=== PATIENT | female | born 1950 | race Caucasian/White ===

== ENCOUNTER 2020-05-22 11:01 | Emergency (ER) | payer MEDICARE, SELFPAY ==
[2020-05-22 11:16] VITALS: BP 146/81; PULSE 79; RESP 18; TEMP 37.3; O2SAT 100
--- NOTE | 2020-05-22 11:24 | ED.URI ---
HPI - URI/Sore Throat General Chief Complaint: Upper Respiratory Infection Stated Complaint: upper respiratory infection Time Seen by Provider: 05/22/20 11:06 Source: patient Mode of arrival: ambulatory Limitations: no limitations History of Present Illness HPI Narrative: 70 year old female presents to urgent care with complaints of sinus pressure, non-productive cough, nasal congestion and PND X 3 weeks. Patient is a non-smoker. Patient denies sick contacts. Patient denies recent travel. Patient denies concern for COVID. Patient has been taking OTC Mucinex with minimal relief. Patient denies fever, body aches, chills, nausea, vomiting, diarrhea, SOB or wheezing. MD elicited complaint: cough, nasal congestion and sinus pain Onset (ago): week(s) (3) Able to tolerate fluids by mouth: Yes Treatments prior to arrival: cold medicine Related Data Home Medications Medication Instructions Recorded Confirmed escitalopram oxalate 20 mg MDD daily 05/22/20 Allergies Allergy/AdvReac Type Severity Reaction Status Date / Time No Known Allergies Allergy Verified 05/22/20 11:08 Review of Systems Constitutional: Constitutional: Denies chills, Denies fever(s) and Denies weakness ENT: Denies dysphagia, Denies dizziness, Denies epistaxis, Reports nasal congestion and Denies sore throat Comments: PND, sinus pressure Cardiovascular: Cardiovascular: Denies chest pain, Denies rapid heart rate, Denies radiating jaw, neck or arm pain and Denies slow heart rate Respiratory: Respiratory: Denies chest congestion, Reports cough, Denies dyspnea and Denies wheezing Gastrointestinal: Gastrointestinal: Denies abdominal pain, Denies constipation, Denies diarrhea, Denies nausea and Denies vomiting Integumentary/Breasts: Skin/Breast: Denies rash Endocrine: Endocrine: Denies fatigue [facility] Past Medical History Medical History (Updated 05/22/20 @ 11:33 by Genia David APRN) Anxiety Deviated septum Tubal ligation evaluation Surgical History Surgical History History of nasal surgery Social History Social History (Updated 05/22/20 @ 11:30 by Genia David APRN) Smoking status: Never smoker Gender identity (if verbalized by the patient): Female Comments At time of signature, I agree with nursing past medical, surgical, social and family history. There is no relevant family history pertinent to the presenting complaint. Exam Const: General: healthy appearing and no acute distress Orientation/consciousness: patient oriented x3 HENMT: Ears: external ears normal and TM's normal bilaterally Mouth: Yes lip normal and Yes moist mucous membranes Throat: posterior oropharynx normal and uvula midline Other: Mild sinus pressure upon palpation. There is mild amount of nasal congestion noted. Neck: Neck: normal visual inspection and no lymphadenopathy Resp: Effort & Inspection: normal respiratory effort, not labored and not tachypneic Auscultation: clear to auscultation bilaterally Other: Frequent nonproductive cough noted. There is no respiratory distress noted Cardio: Rate: regular rate, not bradycardic and not tachycardic Rhythm: regular rhythm Skin: General skin exam: normal color Rashes: no rashes Wounds: no wounds Neuro: General: patient oriented x3 and moves all extremities Psych: Appearance: grossly normal Mental Status: mental status grossly normal Affect: normal affect Thought content: Yes Normal thought content present Course Vital Signs Vital signs: Vital Signs Temperature 37.3 C 05/22/20 11:16 Pulse Rate 79 05/22/20 11:16 Respiratory Rate 18 05/22/20 11:16 Blood Pressure 146/81 H 05/22/20 11:16 Pulse Oximetry 100 05/22/20 11:16 Temperature 37.3 C 05/22/20 11:16 Pulse Rate 79 05/22/20 11:16 Respiratory Rate 18 05/22/20 11:16 Blood Pressure 146/81 H 05/22/20 11:16 Pulse Oximetry 100 05/22/20 11:16 [facility] - URI/S
== END 2020-05-22 11:37 | disposition home or self-care (01) ==
PROVIDERS: Emergency Provider Nurse Practitioner Family
DX: J06.9 Acute upper respiratory infection, unspecified (principal); F41.9 Anxiety disorder, unspecified; F32.9 Major depressive disorder, single episode, unspecified
CPT/HCPCS: 99213; G0463

== ENCOUNTER 2020-11-05 09:11 | Emergency (ER) | payer MEDICARE, SELFPAY ==
[2020-11-05 09:21] VITALS: BP 136/76; PULSE 73; RESP 16; TEMP 36.5; O2SAT 100
--- NOTE | 2020-11-05 09:31 | ED.FEMALEGU ---
HPI - Female Genitourinary General Chief complaint: Urogenital-Female Stated complaint: UTI Source: patient, RN notes reviewed and old records reviewed Mode of arrival: ambulatory Limitations: no limitations History of Present Illness HPI Narrative: 70 year old female presents to express care with complaints of urgency, feels like she is not emptying her bladder, and has some suprapubic pressure for 1 week duration.She denies any new sexual partners, denies any vaginal discharge or any perineal itching. Patient states that she had a bladder infection about a year ago and it did not show in the dip but showed when culture returned. Patient states that her first antibiotic she received did not work but second one did that was for 10 days. Patient states that she has similar symptoms as she did when she previously had a UTI. Patient denies any fever, chills, or sweats, denies any nausea or vomiting or any CVA tenderness. MD elicited complaint: dysuria Pertinent past history: other (UTI last year) Onset (ago): week(s) (1) Location of symptoms: suprapubic Severity: mild Severity scale (1-10): 3 Quality of pain: burning and aching Consistency: constant Vaginal discharge: none Vaginal bleeding: none Urinary symptoms: Dysuria, Urgency and Frequency Exacerbating factors: none Relieving factors: none Treatment prior to arrival: none Sexual activity: Yes Patient : No Possible : postmenopausal (hysterectomy) Related Data Home Medications Medication Instructions Recorded Confirmed escitalopram oxalate 20 mg PO DAILY 11/05/20 11/05/20 Allergies Allergy/AdvReac Type Severity Reaction Status Date / Time levofloxacin [From Levaquin] Allergy Swelling Verified 11/05/20 09:36 of Lip/Tongue/Throat Review of Systems Review of Systems: Narrative: CONSTITUTIONAL: Denies fever, chills, or sweats. EYES: Denies visual changes, redness, or discharge. ENT: Denies rhinorrhea, congestion, sore throat, or otalgia. CARDIOVASCULAR: Denies chest pain, palpitations, or edema. RESPIRATORY: Denies cough or dyspnea. GASTROINTESTINAL: Positive suprapubic abdominal pain and pressure,no nausea, vomiting, or diarrhea. GENITOURINARY: Positive dysuria no hematuria. SKIN: Denies rash or itching. MUSCULOSKELETAL: Denies back pain, joint pain, or myalgia. NEUROLOGIC: Denies headache, numbness, or weakness. PSYCHIATRIC: Positive history anxiety or depression. All systems reviewed & are unremarkable except as noted in HPI and below PMFSH Past Medical History Medical History (Updated 11/06/20 @ 00:00 by Vera Choi) Anxiety Deviated septum Tubal ligation evaluation UTI (urinary tract infection) Surgical History Surgical History (Updated 11/05/20 @ 10:05 by Vira Green NP) H/O: hysterectomy History of nasal surgery History of tonsillectomy Family History Family History (Updated 11/05/20 @ 10:04 by Vira Green NP) Father AAA (abdominal aortic aneurysm) Sibling Diabetes mellitus Mother Hypertension Other Cerebrovascular accident Heart disease Social History Social History (Updated 11/07/20 @ 20:43 by Vira Green NP) Smoking status: Former smoker Alcohol intake: current Alcohol use details: social Substance use: never Living arrangements: with family Gender identity (if verbalized by the patient): Female Comments At time of signature, agree with nursing past medical, surgical, social and family history. There is no relevant family history pertinent to the presenting complaint Exam Narrative: Exam Narrative: GENERAL: Well-appearing, well-nourished, and in no acute distress. HEAD: Normocephalic, atraumatic. EYES: PERRLA and EOMI. ENT: Nares clear, no rhinorrhea or epistaxis. Mucous membranes moist. NECK: Supple. no lymphadenopathy CHEST: Clear to auscultation. No respiratory distress. HEART: Regular rate and rhythm. No murmur heard. Normal peripheral pulses. ABDOMEN
== END 2020-11-05 09:54 | disposition home or self-care (01) ==
PROVIDERS: Emergency Provider Registered Nurse
DX: N39.0 Urinary tract infection, site not specified (principal); Z87.891 Personal history of nicotine dependence; F41.9 Anxiety disorder, unspecified
CPT/HCPCS: 81003; 87086; 87088; 99213; G0463

== ENCOUNTER 2023-01-04 10:49 | Emergency (ER) | payer MEDICARE, SELFPAY ==
--- NOTE | 2023-01-04 10:54 | ED.WOUNDLAC ---
HPI - Wound/Laceration General Chief Complaint: Wound/Laceration Stated Complaint: laceration Time Seen by Provider: 01/04/23 10:54 Source: patient Mode of arrival: ambulatory Limitations: no limitations History of Present Illness HPI narrative: Patient is a 72-year-old female presents with laceration to right middle finger pad. States it got caught in a door and ripped. States tetanus shot is up-to-date. denies any numbness or tingling to finger tip. States it is tender to touch. Bleeding controlled at this time. Related Data Home Medications Medication Instructions Recorded Confirmed escitalopram oxalate 20 mg tablet 20 mg PO DAILY 11/05/20 01/04/23 Allergies Allergy/AdvReac Type Severity Reaction Status Date / Time levofloxacin [From Levaquin] Allergy Swelling Verified 01/04/23 11:25 of Lip/Tongue/Throat Review of Systems Review of Systems: All systems reviewed & are unremarkable except as noted in HPI and below Constitutional: Constitutional: Denies body ache(s), Denies chills, Denies fatigue, Denies fever(s), Denies headache(s), Denies malaise and Denies weakness Eyes: Eyes: Denies blurry vision, Denies irritation and Denies loss of vision ENT: Denies otalgia, Denies headache(s), Denies nasal discharge, Denies sinus pain and Denies sore throat Cardiovascular: Cardiovascular: Denies chest pain, Denies irregular heart rhythm and Denies dyspnea Respiratory: Respiratory: Denies dyspnea Gastrointestinal: Gastrointestinal: Denies abdominal pain, Denies melena, Denies hematochezia, Denies diarrhea, Denies nausea and Denies vomiting Musculoskeletal: Musculoskeletal: Denies back pain, Denies myalgias and Reports arthralgias Integumentary/Breasts: Skin/Breast: Denies pruritus, Denies rash and Reports other (Laceration) Neurologic: Denies headache(s), Denies loss of vision and Denies weakness Psychiatric: Psychiatric: Reports no additional psychiatric complaints Endocrine: Endocrine: Denies fatigue PMFSH Past Medical History Medical History (Updated 01/04/23 @ 11:57 by Lia Nugent APRN) Anxiety Deviated septum Tubal ligation evaluation UTI (urinary tract infection) Surgical History Surgical History (Updated 11/05/20 @ 10:05 by Vira Green NP) H/O: hysterectomy History of nasal surgery History of tonsillectomy Family History Family History (Updated 11/05/20 @ 10:04 by Vira Green NP) Father AAA (abdominal aortic aneurysm) Sibling Diabetes mellitus Mother Hypertension Other Cerebrovascular accident Heart disease Social History Social History (Updated 11/07/20 @ 20:43 by Vira Green NP) Smoking status: Former smoker Alcohol intake: current Alcohol use details: social Substance use: never Living arrangements: with family Gender identity (if verbalized by the patient): Female Comments At time of signature, agree with nursing past medical, surgical, social and family history. There is no relevant family history pertinent to the presenting complaint. Exam Const: General: cooperative, healthy appearing, comfortable, no acute distress and well nourished Nutritional Appearance: well nourished Orientation/consciousness: patient oriented x3 Limitations: no limitations HENMT: Head: normal to inspection, normocephalic and atraumatic Ears: hearing grossly normal bilaterally and external ears normal Face/Nose/Sinus: Normal external nose present, normal facial exam and face symmetric Face and sinus: normal facial exam and face symmetric Mouth: Yes lip normal Eyes: General: appearance normal, both eyes and all related structures Alignment and Position: alignment normal and position normal Periorbital: periorbital findings normal Eyelids: eyelids normal Pupils: Equal, round and reactive pupils present EOM: EOMs intact bilaterally Neck: Neck: normal visual inspection, full ROM and supple Chest: Chest palpation & inspection: adilson
[2023-01-04 11:09] VITALS: BP 144/90; PULSE 63; RESP 20; TEMP 36.6; O2SAT 100
== END 2023-01-04 12:07 | disposition home or self-care (01) ==
PROVIDERS: Emergency Provider Nurse Practitioner Family
DX: S61.213A Laceration without foreign body of left middle finger without damage to nail, initial encounter (principal); X58.XXXA Exposure to other specified factors, initial encounter; Z87.891 Personal history of nicotine dependence; F41.9 Anxiety disorder, unspecified
CPT/HCPCS: 12002; 99213; G0463

== ENCOUNTER 2023-10-23 12:49 | Emergency (ER) | payer MEDICARE, SELFPAY ==
[2023-10-23 13:01] VITALS: BP 132/72; PULSE 58; RESP 18; TEMP 36.4; O2SAT 100
--- NOTE | 2023-10-23 13:14 | ECG_ITS ---
SEE SCANNED COPY FOR CONFIRMED REPORT MTDD
--- NOTE | 2023-10-23 13:15 | ED.GENADULT ---
HPI - General Adult General Chief complaint: Unspecified Stated complaint: fatigue Time Seen by Provider: 10/23/23 12:52 Source: patient Mode of arrival: ambulatory Limitations: no limitations History of Present Illness HPI narrative: 73-year-old female presents to [facility] with complaints of extreme fatigue and weakness over the past 6 days. Patient denies chest pain, sore throat, fever, body aches, chills, cough, runny nose, nasal congestion or wheezing. Patient reports that she was exposed to mono 2 times over the past 3 weeks. 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 Patient reports that she went to the [employer] 2 days ago and had to stop and sit while walking up steps due to increased palpitations. Onset (ago): day(s) () Relieving factors: none Exacerbating factors: none Treatments prior to arrival: none Related Data Home Medications Medication Instructions Recorded Confirmed escitalopram oxalate 20 mg tablet 20 mg PO DAILY 11/05/20 10/23/23 Allergies Allergy/AdvReac Type Severity Reaction Status Date / Time levofloxacin [From Levaquin] Allergy Swelling Verified 10/23/23 13:00 of Lip/Tongue/Throat Review of Systems Constitutional: Constitutional: Denies body ache(s), Denies chills, Denies daytime sleepiness, Denies difficulty sleeping, Denies excessive sweating, Denies frequent falls, Denies headache(s), Denies increased appetite, Reports lethargy, Denies night sweats, Denies poor appetite, Reports weakness, Denies weight gain and Denies weight loss Cardiovascular: Cardiovascular: Denies chest pain, Denies chest pain at rest, Denies chest pain with activity, Denies diaphoresis, Denies syncope, Denies rapid heart rate, Denies pedal edema, Denies edema, Denies irregular heart rhythm, Denies claudication, Denies leg ulcers, Denies dyspnea and Denies dyspnea on exertion Comments: Heart palpitation Respiratory: Respiratory: Denies chest congestion, Denies cough, Denies hemoptysis, Denies pain with cough and Denies dyspnea Gastrointestinal: Gastrointestinal: Denies constipation, Denies GI cramping, Denies dysphagia, Denies diarrhea, Denies nausea, Denies odynophagia and Denies hematemesis Musculoskeletal: Musculoskeletal: Denies abnormal gait and Denies back pain Neurologic: Denies burning sensations, Denies confusion, Denies vertigo, Denies dizziness, Denies syncope, Denies focal weakness, Denies loss of vision, Denies numbness and Denies tingling PMFSH Past Medical History Medical History Anxiety Deviated septum Tubal ligation evaluation UTI (urinary tract infection) Surgical History Surgical History (Updated 11/05/20 @ 10:05 by Vira Green NP) H/O: hysterectomy History of nasal surgery History of tonsillectomy Family History Family History Father AAA (abdominal aortic aneurysm) Sibling Diabetes mellitus Mother Hypertension Other Cerebrovascular accident Heart disease Social History Social History Smoking status: Former smoker Alcohol intake: current Alcohol use details: social Substance use: never Living arrangements: with family Gender identity (if verbalized by the patient): Female Comments At time of signature, I agree with nursing past medical, surgical, social and family history. There is no relevant family history pertinent to the presenting complaint. Exam Const: General: cooperative, healthy appearing, comfortable, no acute distress, well developed, alert, awake, Physically active, well groomed, average body habitus and well nourished Orientation/consciousness: patient oriented x3 Limitations: no limitations HENMT: Head: other (Facial twitching noted, patient reports long history of facial twitching) Ears: hea
== END 2023-10-23 13:27 | disposition short-term general hospital (02) ==
PROVIDERS: Emergency Provider Nurse Practitioner Family; PCP Internal Medicine Cardiovascular Disease
DX: R53.83 Other fatigue (principal); Z87.891 Personal history of nicotine dependence; F41.9 Anxiety disorder, unspecified
CPT/HCPCS: 36416; 86308; 93005; 99213; G0463